=== PATIENT | male | born 1950 | race Caucasian/White ===

== ENCOUNTER → 2017-01-27 | Outpatient (CLI) | payer MEDICARE, OTHER ==
--- NOTE | 2017-01-27 17:53 | RADIOLOGY REPORT PS360 ---
US SCROTUM HISTORY: SCROTAL MASS, BENIGN CYST OF TESTIS ORDERING PHYSICIAN: DERRICK CAAL APRN PATIENT AGE: 66 years COMPARISON: None FINDINGS: RIGHT TESTICLE: The right testicle has an unremarkable appearance measuring 3.9 x 2.5 x 3.4 cm. The epididymis has an unremarkable appearance. There is blood flow to the right testicle. No testicular mass apparent. There is a prominent right hydrocele at 5 x 3 cm LEFT TESTICLE: The left testicle has an unremarkable appearance measuring4.6 x 2.7 x 3 cm. No mass, hydrocele, spermatocele, or varicocele evident. Blood flow is noted to the left testicle. IMPRESSION: Moderate sized right hydrocele otherwise negative scrotal ultrasound
== END ==
LOC: RAD 14:24
DX: N44.2 Benign cyst of testis (principal); D40.8 Neoplasm of uncertain behavior of other specified male genital organs

== ENCOUNTER → 2017-06-24 | Outpatient (CLI) | payer MEDICARE, OTHER ==
--- NOTE | 2017-06-24 15:32 | RADIOLOGY REPORT PS360 ---
ARTERIAL/[id number] COMPARISON: None HISTORY: Known diabetic with history of peripheral vascular disease, current smoking history, hypertension, hyperlipidemia rest pain in both lower legs TECHNIQUE: Segmental blood pressures and Doppler evaluation of both legs FINDINGS: The right brachial pressure is 152. Pressures in the right leg show the thigh be 166 calf 160 posterior tibia 176 and dorsalis pedis 189. The digital pressure is 111. The waveforms appear normal. The right YASMIN is 1.24. The left brachial pressure is 143. Pressures left leg show the thigh be 170 calf 171 posterior tibial 177 and dorsalis pedis 177 and digital pressure is 132. The Doppler waveforms appear normal. The left YASMIN is 1. 2. IMPRESSION: Hypertension, normal ABIs bilaterally.
== END ==
LOC: RT 12:49
DX: I73.89 Other specified peripheral vascular diseases (principal)